=== PATIENT | female | born 1960 | race Caucasian/White ===

== ENCOUNTER 2017-02-20 16:24 | Emergency (ER) | payer BC ==
[~2017-02-20] VITALS: Ht 154.9 cm; Wt 78.4 kg
[2017-02-20 16:30] VITALS: TEMP 37; Ht 154.9 cm; Wt 78.4 kg
[2017-02-20] MEDS ORDERED: MISCCAP80 PO (16:57)
[2017-02-20] MEDS ORDERED: FOLI1TAB7 PO (16:57)
[2017-02-20] MEDS ORDERED: OXYC-57 PO (16:57)
[2017-02-20] MEDS ORDERED: METH2.5T PO (16:57)
[2017-02-20] MEDS ORDERED: SIMV20TA2 PO (16:57)
[2017-02-20] MEDS ORDERED: VENL75CA PO (16:57)
[2017-02-20] MEDS ORDERED: CLB/200 PO (16:57)
--- NOTE | 2017-02-20 17:13 | DIAGNOSTIC IMAGING REPORT ---
L KNEE 3 VIEWS CLINICAL HISTORY: L knee pain pain COMPARISON: None. DISCUSSION: Mild degenerative changes of patellofemoral and medial joint compartments. No well-defined acute bony abnormality. Tibial spines are intact. No significant joint effusion. There is no evidence for soft tissue swelling. IMPRESSION: Mild degenerative change medial joint compartment as well as patellofemoral joint. No acute bony abnormality The above report was generated using voice recognition software. It may contain grammatical, syntax or spelling errors. Electronically signed by: Bean Kemp M.D. 02/20/2017 5:12 PM Dictated Date/Time: 02/20/2017 5:11 PM
[2017-02-20 18:06] VITALS: BP 129/73; PULSE 65; O2SAT 97
--- NOTE | 2017-02-20 19:59 | EMERGENCY ROOM VISIT NOTE ---
History First contact with patient: 16:39 Chief Complaint: KNEEPAIN Stated Complaint: LEFT KNEE PAIN History of Present Illness The patient is a 56 year old female who presents to the Emergency Room with complaints of persistent left anterior knee pain. The patient relates that she tripped and fell on her steps 5 days ago, landing directly on the front of the knee. The patient reports that her knee has been uncomfortable since that time. She tripped again last night on an extension cord, falling again onto the anterior knee. The patient is concerned that she may have injured something. She denies any locking or instability with weightbearing. The patient denies any prior history of left knee injuries. She does report a history of psoriatic arthritis, and is on methotrexate and Celebrex. She also has additional pain medications at home as needed for pain. She rates her discomfort a 5 out of 10 with weightbearing. Tetanus immunization is up-to- date. Review of Systems 10 system review was performed and was negative except for pertinent positives and negatives as indicated in history of present illness Past Medical/Surgical History Medical Problems: (1) Psoriatic arthritis Surgical Problems: (1) No history of previous surgery Medical Problems: (1) Asthma (2) Kidney stones (3) Pneumonia (4) Psoriatic arthritis Surgical Problems: (1) History of arthroscopy of both shoulders (2) History of delivery (3) History of hysterectomy (4) History of nasal septoplasty Family History FH: cancer FH: heart disease FH: hypertension FH: kidney disease Social History Smoking Status: Never Smoker Alcohol Use: none Marital Status: Housing Status: lives with family Occupation Status: unemployed Current/Historical Medications Scheduled Celecoxib (CeleBREX), 200 MG PO DAILY Folic Acid (Folvite), 1 MG PO DAILY Methotrexate (Methotrexate), 6 TABS PO WK Probiotic Product (Probiotic), 1 CAP PO DAILY Simvastatin (Zocor), 20 MG PO QPM Venlafaxine Hcl (Effexor Xr), 1 CAP PO DAILY Scheduled PRN Oxycodone/Acetaminophen 5MG/325MG (Percocet 5MG/325MG), 1 TABLET PO Q6H PRN for Pain Physical Exam Vital Signs Date Time Temp Pulse Resp B/P (MAP) Pulse Ox O2 Delivery O2 Flow Rate FiO2 02/20/17 18:06 65 18 129/73 97 Room Air 02/20/17 16:30 37.0 71 18 110/74 97 Room Air Physical Exam CONSTITUTIONAL: Healthy and well nourished. Alert and oriented X 3 with positive affect. Patient does not appear in any acute distress. HEENT: Normocephalic, atraumatic. Pupils equal, round and reactive. NECK: Full active range of motion without discomfort. RESPIRATORY: Clear to auscultation bilaterally with no wheezing, crackles, rhonchi or stridor. CARDIOVASCULAR: Regular rate and rhythm with no murmurs, rubs or gallops. MUSCULOSKELETAL: Examination of the left knee shows an anterior abrasion without any significant edema, erythema, induration or drainage. She has tenderness of the patella. No focal tenderness of the patellar or quadriceps tendons. No joint effusion noted. No tenderness to palpation through the medial or lateral joint line, hamstrings, proximal fibula or calf. Pedal pulses are intact. Ligaments exam is normal. The patient exhibits almost full active range of motion without significant discomfort. INTEGUMENTARY: No rash or other significant dermatologic conditions noted. NEUROLOGIC: Left lower extremity is sensory intact. Medical Decision & Procedures ER Provider Diagnostic Interpretation: My interpretation of left knee x-rays does not show any obvious fractures, dislocation or joint effusion. Radiologist report is as follows: L KNEE 3 VIEWS CLINICAL HISTORY: L knee pain pain COMPARISON: None. DISCUSSION: Mild degenerative changes of patellofemoral and medial joint compartments. No well-defined acute bony abnormality. Tibial spines are intact. No significant joint effusion. There is no evidence for soft tissue swelling. IMPRESSION: Mild degenerative change medial joint compartment as well as patellofemoral joint. No acute bony abnormality ED Course Patient history and physical exam were performed. Nurse's notes were reviewed. Vital signs were reviewed and were normal. The patient refused any analgesics while in the emergency department. X-rays of the left knee were normal. The patient was advised that her symptoms are secondary to a patellar contusion from her fall. A knee immobilizer was applied. She was encouraged to intermittently apply ice to the knee. She was encouraged to continue with her Celebrex as needed for pain relief, and follow-up with her PCP or orthopedics if symptoms are not improving within the next week. The patient was happy with plan of care, voiced understanding of all discharge instructions , and denied any significant pain at the conclusion of my exam. Medical Decision [place] Drug Monitoring Program Search Results: patient reviewed within database, no issues identified Medication Reconcilliation Current Medication List: was personally reviewed by me Blood Pressure Screening Patient's blood pressure: Normal blood pressure Impression Primary Impression: Contusion of left patella Additional Impression: Fall from slip, trip, or stumble Departure Information Referrals Grant Gamboa M.D. (PCP) Patient Instructions [facility] Problem Qualifiers Primary Impression: Contusion of left patella Encounter type: initial encounter Qualified Codes: S80.02XA - Contusion of left knee, initial encounter Additional Impression: Fall from slip, trip, or stumble Encounter type: initial encounter Qualified Codes: W01.0XXA - Fall on same level from slipping, tripping and stumbling without subsequent striking against object, initial encounter
== END 2017-02-20 18:13 | disposition home or self-care (01) ==
LOC: C.EDB 16:24 → C.EDD 18:13
DX: S80.02XA Contusion of left knee, initial encounter (principal); W01.0XXA Fall on same level from slipping, tripping and stumbling without subsequent striking against object, initial encounter; L40.50 Arthropathic psoriasis, unspecified; J45.909 Unspecified asthma, uncomplicated; Z87.442 Personal history of urinary calculi; Z90.710 Acquired absence of both cervix and uterus; Z98.890 Other specified postprocedural states; Z79.899 Other long term (current) drug therapy; Z80.9 Family history of malignant neoplasm, unspecified; Z82.49 Family history of ischemic heart disease and other diseases of the circulatory system; Z84.1 Family history of disorders of kidney and ureter